=== PATIENT | female | born 1945 | race American Indian/Alaskan Native ===

== ENCOUNTER 2017-01-23 18:13 | Emergency (ER) | payer MEDICAID ==
[2017-01-23 18:57] VITALS: BP 129/75
--- NOTE | 2017-01-23 19:04 | EDM.PDOC ---
{null, ED HPI GENERAL MEDICAL PROBLEM - General Chief Complaint: Neuro Symptoms/Deficits Stated Complaint: by ambulance Time Seen by Provider: 01/23/17 18:18 Source of Information: Reports: Patient History Limitations: Reports: No Limitations - History of Present Illness INITIAL COMMENTS - FREE TEXT/NARRATIVE: patient is brought from home by ambulance to the emergency department with complaints of sudden onset of left-sided weakness. The patient was at home at 1745 when she suddenly developed left-sided weakness. she called the ambulance and was brought emergently to the emergency department. In route she was alert but EMS and did have one bout of emesis. Upon arrival patient complains of a mild right-sided posterior headache but very minimal. She denies any recent head injury or trauma. She's never had anything like this before. She denies any symptoms over the last couple of days. She denies any confusion. Denies any neck or back pain. Denies any chest pain shortness of breath. Denies any fever or chills. Denies any abdominal. She does complain of numbness and tingling to her left arm and her left leg. He does complain of nausea and did vomit one time prior to arrival. She has not had any recent surgeries. She denies any past medical history. Denies taking any medications. 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 ED EXAM, NEURO - Physical Exam Exam: See Below Exam Limited By: No Limitations General Appearance: Alert, WD/WN, No Apparent Distress Eye Exam: Bilateral Eye: EOMI, Normal Fundi, Normal Inspection, PERRL (3 mm bilaterally) Ears: Normal External Exam, Normal Canal, Hearing Grossly Normal, Normal TMs Nose: Normal Inspection, Normal Mucosa, No Blood Throat/Mouth: Normal Inspection, Normal Lips, Normal Oropharynx Head Exam: Atraumatic, Normocephalic Neck: Normal Inspection, Supple, Non-Tender, Full Range of Motion Respiratory/Chest: No Respiratory Distress, Lungs Clear, Normal Breath Sounds, No Accessory Muscle Use, Chest Non-Tender Cardiovascular: Normal Peripheral Pulses, Regular Rate, Rhythm, No Edema, No Gallop, No Murmur GI/Abdominal: Normal Bowel Sounds, Soft, Non-Tender, No Organomegaly, No Distention, No Abnormal Bruit (Female) Exam: Deferred Rectal (Female) Exam: Deferred Neurological: Alert, Normal Mood/Affect, CN II-XII Intact, Oriented x 3, Other ( there is no facial droop although her speech is somewhat slurred at times. She moves her right upper extremity and right lower extremities strong and equal to command 5/5. She has weakness to her left upper and lower extremity. 2/5 for her left upper and left lower extremity. There is some muscle twitches she is unable to get off the bed. She does have sensation intact. CMS is intact in all 4 extremities.) Back Exam: Normal Inspection, Full Range of Motion Extremities: Normal Inspection, Normal Range of Motion, Non-Tender, Normal Capillary Refill Psychiatric: Normal Affect, Normal Mood Skin Exam: Warm, Dry, Intact, Normal Color, No Rash EKG INTERPRETATION Rhythm: NSR [place]: normal P-wave: present QRS: normal ST-T: normal QT: normal Comparison: NA - no prior EKG Course - Vital Signs Last Recorded V/S: Last Vital Signs Temp 36.2 C 01/23/17 18:18 Pulse 67 01/23/17 18:18 Resp 17 01/23/17 18:18 BP 129/75 01/23/17 18:18 Pulse Ox 95 01/23/17 18:18 - Orders/Labs/Meds Meds: Medications Discontinued Medications Generic Name Dose Route Start Last Admin Trade Name Freq PRN Reason Stop Dose Admin Diphenhydramine HCl 25 mg 01/23/17 19:14 01/23/17 19:21 Benadryl IVPUSH 01/23/17 19:15 25 mg ONETIME ONE Administration Ondansetron HCl 4 mg 01/23/17 19:14 01/23/17 19:21 Zofran IV 01/23/17 19:15 4 mg ONETIME ONE Administration - Radiology Interpretation Free Text/Narrative:: per radiology. CT scan of the head. Edema in the superior right posterior parietal region may represent evolving infarction. 5 mm hyperdensity in this region may represent hemorrhagic infarction. - Re-Assessments/Exams Free Text/Narrative Re-Assessment/Exam: 01/23/17 upon arrival the patient was brought directly to the CAT scanner. When she returned from the CAT scan she was given Benadryl and Zofran for nausea. The results of the CT scan were relayed to the patient as well as her family for the concern of infarction with a questionable hemorrhage within the infarct. Due to the hemorrhage concerns she is not a candidate for thrombolysis. Although we are still very early in this episode and I feel that emergent neuro evaluation is most appropriate. I did call and talk with [facility] and accepted the patient on an emergent transfer under their care for possible neuro-interventional services. This was explained to the patient and her family and they were understanding of this. Her neurological status did not improve or worsen while she was in the emergency department. Her nausea did improve after the medication administration. Departure - Departure Time of Disposition: 18:55 Disposition: DC/Tfer to Acute Hospital 02 Clinical Impression: Cerebral hemorrhage with hemiparesis Cerebral infarct Qualifiers: Cerebral infarction mechanism: unspecified mechanism Qualified Code(s): I63.9 - Cerebral infarction, unspecified - Discharge Information Referrals: PCP,None [Primary Care Provider] - Forms: ED Department Discharge ED Communication - ED Communication Date/Time Date: 01/23/17 ([facility] ER course and findings were relayed to Dr. Raymundo over the phone. His questions were answered and he accepted the patient in transfer to his service at [facility] No new orders were received. ) Time Called: 18:50 - Assessment/Plan Assessment:: superior right posterior parietal region with infarction and possible hemhorrage. Left sided hemiplegia. Nausea and vomiting. Plan: [place] [facility] flight to [facility] for emergent neuro interventional evaluation. Under the care of Dr. Raymundo. }
[2017-01-23] MEDS ORDERED: Ondansetron 4 MG/2 ML SDV IV ONE (19:14)
[2017-01-23] MEDS ORDERED: diphenhydrAMINE 50 MG/ML SDV IVPUSH ONE (19:14)
--- NOTE | 2017-01-26 10:59 | EKG ---
{null, 01/23/2017 - GONZALO CHRISTIANSEN - 12-lead EKG shows normal sinus rhythm noise noted on lead V4, V5, V6 could be resulting from lead placement. No significant ST elevation or ST depression noted on this 12-lead. RI interval of 152. [facility] /[id number] }
== END 2017-01-23 19:45 ==
LOC: DL.ED 18:13
DX: I63.9 Cerebral infarction, unspecified (principal); I61.9 Nontraumatic intracerebral hemorrhage, unspecified; G81.90 Hemiplegia, unspecified affecting unspecified side; J45.909 Unspecified asthma, uncomplicated; Z79.82 Long term (current) use of aspirin; Z79.899 Other long term (current) drug therapy
CPT/HCPCS: 70450; 96374; 96375; 99285; J1200; J2405; 99284

== ENCOUNTER 2017-05-08 04:39 | Emergency (ER) | payer MEDICARE, MEDICAID ==
[2017-05-08] MEDS ORDERED: Sodium Chloride 0.9% 1,000 ML IV ONE (04:53)
[2017-05-08] MEDS ORDERED: levETIRAcetam 500 MG in Sodium Chloride 0.9% 100 ML IV ONE ×2 (05:22→06:34)
[2017-05-08 05:43] LABS: CHLORIDE,CL 87 mmol/L (101-111); SODIUM,NA 125 mmol/L (135-145)
[2017-05-08] MEDS ORDERED: Insulin Regular, Human 100 Units/ML 3 ML Vial IV ONE (06:12)
[2017-05-08 06:47] VITALS: BP 101/69
--- NOTE | 2017-05-08 06:53 | EDM.PDOC ---
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 Son notes lasted approximately 5 minutes. Both arms and legs flailing. Patient postictal on arrival of EMS and wakening during transport. Patient able to recall arms waving then "went out". Patient awake and talking on arrival. Hx brain tumor with craniotomy in February. Chemo for lung cancer scheduled to start next week and radiation for tumor pending. Port placed yesterday in [place]. Onset: Today - Related Data Allergies Allergy/AdvReac Type Severity Reaction Status Date / Time No Known Allergies Allergy Verified 05/08/17 05:08 Home Meds: Home Meds Aspirin [Priscila Chewable] 81 mg PO DAILY 01/02/14 [History] Fluticasone/Salmeterol [Advair 250-50 Diskus] 2 puff INH BID 01/02/14 [History] Sertraline [Zoloft] 100 mg PO DAILY 01/02/14 [History] Dexamethasone 2 mg PO BID 05/08/17 [History] Past Medical History Respiratory History: Reports: Asthma [employer]ING [employer]ENDER History: Reports: - Past Surgical History Other Oncologic Surgeries/Procedures: Stated she had a tumor (unable to identify ) and had a chemotherapy on May 06, 2017; has a port to the right chest Social & Family History - Family History Family Medical History: Noncontributory - Tobacco Use Smoking Status *Q: Never Smoker Second Hand Smoke Exposure: No - Caffeine Use Caffeine Use: Reports: Coffee, Tea - Alcohol Use Days Per Week of Alcohol Use: 0 - Recreational Drug Use Recreational Drug Use: Yes Drug Use in Last 12 Months: Yes Recreational Drug Type: Reports: Marijuana/Hashish Recreational Drug Use Frequency: Daily Recreational Drug Last Use: t-1 ED ROS GENERAL - Review of Systems Review Of Systems: See Below Constitutional: Reports: Malaise, Weakness HEENT: Reports: Glasses Respiratory: Reports: No Symptoms Cardiovascular: Reports: No Symptoms GI/Abdominal: Reports: No Symptoms Skin: Reports: Other (New IV portacath) Neurological: Reports: Pre-Existing Deficit, Seizure, Tremors, Weakness - Physical Exam Exam: See Below Exam Limited By: No Limitations General Appearance: Alert, No Apparent Distress Eye Exam: Bilateral Eye: EOMI, PERRL (3mm) Ears: Normal External Exam Nose: Normal Inspection Throat/Mouth: Other (mucus membranes parched) Head Exam: Normocephalic, Scalp Lacerations (healing right parietal) Neck: Normal Inspection, Supple Respiratory/Chest: No Respiratory Distress, Lungs Clear, Normal Breath Sounds Cardiovascular: Normal Peripheral Pulses, Regular Rate, Rhythm, No Edema GI/Abdominal: Normal Bowel Sounds, Soft Neuro Exam (Abbreviated): Alert, Oriented, Normal Cognition, Memory Loss Recent Events (repeating questions), Other (tremor right upper hand) Back Exam: Normal Inspection. No: Paraspinal Tenderness, Vertebral Tenderness Extremities: Normal Inspection Psychiatric: Normal Affect, Normal Mood Skin Exam: Warm, Dry, Intact, Normal Color Course - Vital Signs Last Recorded V/S: Last Vital Signs Temp 97.1 F 05/08/17 06:46 Pulse 93 05/08/17 06:46 Resp 16 05/08/17 06:46 BP 101/69 05/08/17 06:46 Pulse Ox 93 L 05/08/17 06:46 - Orders/Labs/Meds Labs: Laboratory Tests 05/08/17 05/08/17 05/08/17 Range/Units 04:45 05:08 05:08 WBC 5.8 (5.0-10.0) 10^3/uL RBC 3.77 L (4.2-5.4) 10^6/uL Hgb 12.3 (12.0-16.0) g/dL Hct 39.0 (37.0-47.0) % MCV 103.4 H (80-100) fL MCH 32.6 (27.0-34.0) pg MCHC 31.5 L (33.0-35.0) g/dL Plt Count 179 (150-450) 10^3/uL Neut % (Auto) 76.1 H (42.2-75.2) % Lymph % (Auto) 16.8 L (20.5-50.1) % [place] % (Auto) 6.8 (2-8) % Eos % (Auto) 0.0 L (1.0-3.0) % Baso % (Auto) 0.3 (0.0-1.0) % Add Manual Diff Yes Neutrophils % (Manual) 80 % Band Neutrophils % 1 % Lymphocytes % (Manual) 16 % Monocytes % (Manual) 3 % PT (9.0-12.0) SEC INR (0.9-1.2) Sodium 125 L (135-145) mmol/L Potassium 4.6 (3.6-5.0) mmol/L Chloride 87 L (101-111) mmol/L Carbon Dioxide 24.0 (21.0-31.0) mmol/L Anion Gap 18.6 BUN 9 (7-18) mg/dL Creatinine 0.8 (0.6-1.3) mg/dL Est Cr Clr Drug Dosing 54.11 mL/min Estimated GFR (MDRD) > 60 BUN/Creatinine Ratio 11.25 Glucose 1169 H* (74-105) mg/dL POC Glucose (83-110) mg/dl Lactic Acid (0.5-2.2) mmol/L Calcium 8.7 (8.4-10.2) mg/dl Magnesium 1.8 (1.8-2.5) mg/dL Total Bilirubin 0.9 (0.2-1.0) mg/dL AST 31 (10-42) IU/L ALT 21 (10-60) IU/L Alkaline Phosphatase 193 H (42-121) IU/L CK-MB (CK-2) (0.4-4.7) ng/mL Troponin I 0.02 (0.00-0.02) ng/ml Total Protein 6.6 L (6.7-8.2) g/dl Albumin 3.4 (3.2-5.5) g/dl Globulin 3.2 Albumin/Globulin Ratio 1.06 Amylase 27 L (28-100) U/L Lipase 43 (22-51) U/L Urine Color Straw (YELLOW) Urine Appearance Clear (CLEAR) Urine pH 6.5 (5.0-9.0) Ur Specific [place] <= 1.005 (1.005-1.030) Urine Protein Negative (NEGATIVE) Urine Glucose (UA) 500 H (NEGATIVE) Urine Ketones Negative (NEGATIVE) Urine Occult Blood Negative (NEGATIVE) Urine Nitrite Negative (NEGATIVE) Urine Bilirubin Negative (NEGATIVE) Urine Urobilinogen 0.2 (0.2-1.0) mg/dL Ur Leukocyte Esterase Negative (NEGATIVE) Urine RBC 0-5 /HPF Urine WBC 0-5 (0-5/HPF) /HPF Ur Epithelial Cells Few /HPF Urine Bacteria Few (0-FEW/HPF) /HPF Ketones 05/08/17 05/08/17 05/08/17 Range/Units 05:08 05:08 05:08 WBC (5.0-10.0) 10^3/uL RBC (4.2-5.4) 10^6/uL Hgb (12.0-16.0) g/dL Hct (37.0-47.0) % MCV (80-100) fL MCH (27.0-34.0) pg MCHC (33.0-35.0) g/dL Plt Count (150-450) 10^3/uL Neut % (Auto) (42.2-75.2) % Lymph % (Auto) (20.5-50.1) % [place] % (Auto) (2-8) % Eos % (Auto) (1.0-3.0) % Baso % (Auto) (0.0-1.0) % Add Manual Diff Neutrophils % (Manual) % Band Neutrophils % % Lymphocytes % (Manual) % Monocytes % (Manual) % PT 8.8 L (9.0-12.0) SEC INR 0.9 (0.9-1.2) Sodium (135-145) mmol/L Potassium (3.6-5.0) mmol/L Chloride (101-111) mmol/L Carbon Dioxide (21.0-31.0) mmol/L Anion Gap BUN (7-18) mg/dL Creatinine (0.6-1.3) mg/dL Est Cr Clr Drug Dosing mL/min Estimated GFR (MDRD) BUN/Creatinine Ratio Glucose (74-105) mg/dL POC Glucose (83-110) mg/dl Lactic Acid 4.1 H (0.5-2.2) mmol/L Calcium (8.4-10.2) mg/dl Magnesium (1.8-2.5) mg/dL Total Bilirubin (0.2-1.0) mg/dL AST (10-42) IU/L ALT (10-60) IU/L Alkaline Phosphatase (42-121) IU/L CK-MB (CK-2) 2.20 (0.4-4.7) ng/mL Troponin I (0.00-0.02) ng/ml Total Protein (6.7-8.2) g/dl Albumin (3.2-5.5) g/dl Globulin Albumin/Globulin Ratio Amylase (28-100) U/L Lipase (22-51) U/L Urine Color (YELLOW) Urine Appearance (CLEAR) Urine pH (5.0-9.0) Ur Specific [place] (1.005-1.030) Urine Protein (NEGATIVE) Urine Glucose (UA) (NEGATIVE) Urine Ketones (NEGATIVE) Urine Occult Blood (NEGATIVE) Urine Nitrite (NEGATIVE) Urine Bilirubin (NEGATIVE) Urine Urobilinogen (0.2-1.0) mg/dL Ur Leukocyte Esterase (NEGATIVE) Urine RBC /HPF Urine WBC (0-5/HPF) /HPF Ur Epithelial Cells /HPF Urine Bacteria (0-FEW/HPF) /HPF Ketones 05/08/17 05/08/17 Range/Units 05:08 06:08 WBC (5.0-10.0) 10^3/uL RBC (4.2-5.4) 10^6/uL Hgb (12.0-16.0) g/dL Hct (37.0-47.0) % MCV (80-100) fL MCH (27.0-34.0) pg MCHC (33.0-35.0) g/dL Plt Count (150-450) 10^3/uL Neut % (Auto) (42.2-75.2) % Lymph % (Auto) (20.5-50.1) % [place] % (Auto) (2-8) % Eos % (Auto) (1.0-3.0) % Baso % (Auto) (0.0-1.0) % Add Manual Diff Neutrophils % (Manual) % Band Neutrophils % % Lymphocytes % (Manual) % Monocytes % (Manual) % PT (9.0-12.0) SEC INR (0.9-1.2) Sodium (135-145) mmol/L Potassium (3.6-5.0) mmol/L Chloride (101-111) mmol/L Carbon Dioxide (21.0-31.0) mmol/L Anion Gap BUN (7-18) mg/dL Creatinine (0.6-1.3) mg/dL Est Cr Clr Drug Dosing mL/min Estimated GFR (MDRD) BUN/Creatinine Ratio Glucose (74-105) mg/dL POC Glucose > 500 H* (83-110) mg/dl Lactic Acid (0.5-2.2) mmol/L Calcium (8.4-10.2) mg/dl Magnesium (1.8-2.5) mg/dL Total Bilirubin (0.2-1.0) mg/dL AST (10-42) IU/L ALT (10-60) IU/L Alkaline Phosphatase (42-121) IU/L CK-MB (CK-2) (0.4-4.7) ng/mL Troponin I (0.00-0.02) ng/ml Total Protein (6.7-8.2) g/dl Albumin (3.2-5.5) g/dl Globulin Albumin/Globulin Ratio Amylase (28-100) U/L Lipase (22-51) U/L Urine Color (YELLOW) Urine Appearance (CLEAR) Urine pH (5.0-9.0) Ur Specific [place] (1.005-1.030) Urine Protein (NEGATIVE) Urine Glucose (UA) (NEGATIVE) Urine Ketones (NEGATIVE) Urine Occult Blood (NEGATIVE) Urine Nitrite (NEGATIVE) Urine Bilirubin (NEGATIVE) Urine Urobilinogen (0.2-1.0) mg/dL Ur Leukocyte Esterase (NEGATIVE) Urine RBC /HPF Urine WBC (0-5/HPF) /HPF Ur Epithelial Cells /HPF Urine Bacteria (0-FEW/HPF) /HPF Ketones Negative Meds: Medications Discontinued Medications Generic Name Dose Route Start Last Admin Trade Name Harrisq PRN Reason Stop Dose Admin Sodium Chloride 1,000 mls @ 100 mls/hr 05/08/17 04:53 05/08/17 05:21 Normal Saline IV 05/08/17 14:52 100 mls/hr .BOLUS ONE Administration Levetiracetam 500 mg/ Sodium 105 mls @ 400 mls/hr 05/08/17 05:22 05/08/17 05: 31 Chloride IV 05/08/17 05:36 400 mls/hr ONETIME ONE Administration Insulin Human Regular 100 unit 100 mls @ 0 mls/hr 05/08/17 06:08 05/08/17 06: 26 / Sodium Chloride IV 05/08/17 06:09 0.1 units/kg/hr TITRATE ONE 6.5 mls/hr Protocol Administration 0.1 UNITS/KG/HR Levetiracetam 500 mg/ Sodium 105 mls @ 400 mls/hr 05/08/17 06:34 05/08/17 06: 45 Chloride IV 05/08/17 06:48 400 mls/hr ONETIME ONE Administration Insulin Human Regular 5 unit 05/08/17 06:12 05/08/17 06:24 Humulin R IV 05/08/17 06:13 5 unit ONETIME ONE Administration Protocol - Radiology Interpretation Free Text/Narrative:: CXR: possible small left pleural effusion CT head: No acute change. - Re-Assessments/Exams Free Text/Narrative Re-Assessment/Exam: 05/08/17 06:55 Dr Mariah Johnson accepting of patient in transfer for further evaluation of hyperglycemia, hyponatremia and new seizure onset. Departure - Departure Time of Disposition: 07:20 Disposition: DC/Tfer to Acute Hospital 02 Condition: Fair, Undetermined Clinical Impression: Hyponatremia, Seizure, Acute hyperglycemia, History of brain tumor, Hx of cancer of lung, Port-a-cath in place Diabetes mellitus Qualifiers: Diabetes mellitus type: type 2 Diabetes mellitus complication status: with unspecified complications Diabetes mellitus group home insulin use: unspecified group home insulin use status Qualified Code(s): E11.8 - Type 2 diabetes mellitus with unspecified complications - Discharge Information Referrals: PCP,Unobtain [Primary Care Provider] - Forms: ED Department Discharge
--- NOTE | 2017-05-31 09:48 | EKG ---
05/08/2017- GONZALO CHRISTIANSEN - This is a standard 12-lead EKG showing normal sinus rhythm with a ventricular rate of 95 beats per minute. Left axis deviation. No significant ST-T changes. [facility] /[id number]
== END 2017-05-08 07:25 ==
LOC: DL.ED 04:39
DX: R56.9 Unspecified convulsions (principal); E11.65 Type 2 diabetes mellitus with hyperglycemia; E87.1 Hypo-osmolality and hyponatremia; Z85.118 Personal history of other malignant neoplasm of bronchus and lung; J45.909 Unspecified asthma, uncomplicated; Z98.890 Other specified postprocedural states; Z79.82 Long term (current) use of aspirin; Z79.899 Other long term (current) drug therapy; Z85.841 Personal history of malignant neoplasm of brain
CPT/HCPCS: 36415; 70450; 71010; 80053; 81001; 82009; 82150; 82553; 82962; 83605; 83690; 83735; 84484; 85025; 85610; 87040; 93005; 93010; 96361; 96365; 96367; 96376; 99284; 99285; J1815; J1953; J7030; J7050